=== PATIENT | female | born 1995 | race Caucasian/White ===

== ENCOUNTER → 2017-03-31 | Outpatient (CLI) | payer BC ==
[~2017-03-31] MED LIST: BENADRYL25 MG PO; CLINDAMYCIN150 MG PO; FLONASE 50 MCG/16 GM; FLONASE 50 MCG/16 GM NOSE; RESTASIS1 EACH OPHTH; TRI-SPRINTEC T1 EACH PO; TYLENOL/COD#31 TAB PO; ZYRTEC10 MG PO; [UNRECOGNIZED DRUG - OTHER] PO
--- NOTE | ~2017-03-31 | PUL ---
PATIENT'S NAME: ELI [facility] AGE: 21 Y [address] ROOM: [place] [id number] LOCATION: [facility] ADMIT DATE: 03/31/2017 Pulmonary DISCHARGE DATE: FAMILY PHYSICIAN: PHYSICIAN, NO ATTENDING PHYSICIAN: DIONNE GARRISON NAME OF PROCEDURE: Pulmonary Function Test DATE OF PROCEDURE: March 31, 2017 TECH: ATripe, CANDY SEPARATOR HARD REASON FOR EXAM: Shortness of breath RESULTS: 1. FVC was 4.75 liters which is 110% of predicted and normal, FEV1 was 3.91 liters which is 105% of predicted and normal, and FEV1/FVC was 82% and normal. The flow volume curve did not reveal any significant airflow limitation. After bronchodilator administration FVC increased to 4.78 liters which is a 1% increase and FEV1 increased to 3.96 liters which is a 1% increase as well. FEV1/FVC was 83%. 2. DLCO was 26.7 with an adjusted DLCO of 27.6 which is 103% of predicted and normal. 3. Total lung capacity was 6.41 liters which is 107% of predicted and normal, and residual volume was 1.66 liters which is 91% of predicted and normal. PHYSICIAN INTERPRETATION: The patient has no airflow limitation and no significant bronchodilator response. Her diffusion capacity is normal. There is no evidence of restrictive lung disease. Essentially this is a normal pulmonary function test. MD ILANA YANG/linn /[id number] dtt: 04/05/17 1623 , DIONNE GARRISON dtd: 04/05/17 1329
== END | disposition disaster alternative care site (69) ==
LOC: GRTH 12:49
DX: R06.02 Shortness of breath (principal)